=== PATIENT | female | born 1995 ===

== ENCOUNTER 2016-12-18 17:13 | Emergency (ER) | payer SELFPAY ==
[2016-12-18 17:28] VITALS: BP 130/81; PULSE 83; RESP 18; TEMP 99; O2SAT 100
[2016-12-18] MEDS ORDERED: Bacitracin 500 Units/gm Oint Foilpak UD TOP ONE (17:52)
[2016-12-18] MEDS ORDERED: Bacitracin 500 Units/gm Oint Foilpak UD ONE (18:13)
--- NOTE | 2016-12-18 18:19 | C.PDOC ---
History Of Present Illness 21 yo female c/o laceration to right middle toe since last night after hitting against the radiator. Came into today to make sure "its not infected." No discharge. No change in sensation. Time Seen by Provider: 12/18/16 17:40 Chief Complaint (Nursing): Abnormal Skin Integrity History Per: Patient History/Exam Limitations: no limitations Onset/Duration Of Symptoms: Days (yesterday) Past Medical History Vital Signs: Last Vital Signs Temp 99 F 12/18/16 17:25 Pulse 83 12/18/16 17:25 Resp 18 12/18/16 17:25 BP 130/81 12/18/16 17:25 Pulse Ox 100 12/18/16 18:19 Family History: States: Unknown Family Hx - Social History Hx Alcohol Use: Yes Hx Substance Use: No - Immunization History Hx Tetanus Toxoid Vaccination: No Hx Influenza Vaccination: No Hx Pneumococcal Vaccination: No Review Of Systems Constitutional: Negative for: Fever Neurological: Negative for: Weakness, Numbness Physical Exam - Physical Exam Appears: Well, Non-toxic, No Acute Distress Skin: Warm, Dry, Other ((+) 1 cm laceration to the medial aspect of the right 3rd toe with scabbing and healing , no gaping wound, no discharge or surrounding erythema) Head: Atraumatic, Normacephalic Eye(s): bilateral: Normal Inspection, EOMI Nose: Normal Oral Mucosa: Moist Throat: Normal Neck: Normal Chest: Symmetrical Respiratory: No Accessory Muscle Use Back: Normal Inspection Extremity: Normal ROM Neurological/Psych: Oriented x3, Normal Speech, Normal Motor, Normal Sensation ED Course And Treatment O2 Sat by Pulse Oximetry: 100 Progress Note: Offered XR, pt refused. Wound cleansed and dressed, instructed to follow up with PMD in 1-2 days for wound check. Disposition - Disposition Disposition: HOME/ ROUTINE Disposition Time: 18:18 Condition: STABLE Additional Instructions: Watch for signs of infection including redness, swelling and discharge. WOund check in 2 days with PMD. Prescriptions: Cephalexin [cephalexin] 500 mg PO BID #10 cap Instructions: Laceration (ED) Forms: GRAVIDI ([employer]), School Excuse - Clinical Impression Clinical Impression: Toe laceration
== END 2016-12-18 18:32 | disposition home or self-care (01) ==
LOC: C.ER 17:13
DX: S91.114A Laceration without foreign body of right lesser toe(s) without damage to nail, initial encounter (principal); W22.8XXA Striking against or struck by other objects, initial encounter